=== PATIENT | female | born 1955 | race Caucasian/White ===

== ENCOUNTER 2024-12-17 14:42 | Emergency (ER) | payer MEDICARE, BC, SELFPAY ==
[2024-12-17] VITALS (23 sets, daily range): BP systolic 120–136; BP diastolic 60–76; PULSE 57–80; RESP 11–23; O2SAT 96–98
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
[2024-12-17 15:14] LABS: Abs Immature Grans 0.04 10^3/uL (0.0-0.06); HCT 43.8 % (36.0-46.0); HGB 14.5 g/dL (11.2-15.7); Immature Grans % 0.6 %; MCH 31.4 pg (27.0-33.0); MCHC 33.1 % (32.0-36.0); MCV 95 fL (80-95); MPV 9.2 fL (8.0-11.0); Platelet Count 262 10^3/uL (130-400); RBC 4.62 10^6/uL (3.93-5.22); RDW 11.9 % (11.7-14.6); RDW-SD 41.6 fL; WBC 6.20 10^3/uL (4.4-10.8)
[2024-12-17] MEDS: ACETAMINOPHEN 1,000 MG/100 ML BAG 400 MG IVPB (15:26)
[2024-12-17] MEDS: Diph,Pertuss(Acell),Tet Vac/Pf 0.5 ML SYR IM (15:26)
[2024-12-17 15:34] LABS: INR 1.0 (0.9-1.1); PTT Activated 22.1 sec (20.6-30.2); Prothrombin Time 9.9 sec (9.1-11.1)
[2024-12-17 15:36] LABS: ALT 97 U/L (14-59); AST 120 U/L (15-37); Albumin 4.3 g/dL (3.4-5.0); Alkaline Phosphatase 51 U/L (46-116); Anion Gap 6.1 mmol/L (3-11); BUN 23 mg/dL (7-18); Bilirubin, Total 0.7 mg/dL (0.2-1.0); CO2 31.9 mmol/L (21.0-32.0); Calcium 9.8 mg/dL (8.5-10.1); Chloride 102 mmol/L (98-107); Estimated GFR 69.64 (mL/min/1.73m2); Glucose 137 mg/dL (74-106); Potassium 4.3 mmol/L (3.5-5.1); Sodium 140 mmol/L (136-145); Total Protein 7.7 g/dL (6.4-8.2)
[2024-12-17] MEDS: Normal Saline - Diluent 50 ML VIAL IJ (15:56)
[2024-12-17] MEDS: Omnipaque 350 MG/ML 100 ML BTL IJ (15:56)
--- NOTE | 2024-12-17 16:14 | DI.[facility]_ITS ---
PROCEDURE INFORMATION: Exam: XR Chest Exam date and time: 12/17/2024 3:19 PM Age: 69 years old Clinical indication: Injury or trauma; Fall; Blunt trauma (contusions or hematomas) TECHNIQUE: Imaging protocol: Radiologic exam of the chest. Views: 1 view. COMPARISON: No relevant prior studies available. FINDINGS: Tubes, catheters and devices: EKG wires overlie the chest. Lungs: Unremarkable. No consolidation. Pleural spaces: Unremarkable. No pleural effusion. No pneumothorax. Heart/Mediastinum: Unremarkable. No cardiomegaly. Bones/joints: Degenerative scoliotic changes of the spine. IMPRESSION: No acute cardiopulmonary findings. Dictated and Authenticated by: Tiny Woodall MD. Orderin Luan Hoyos MD
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
== END 2024-12-17 18:03 | disposition home or self-care (01) ==
LOC: ER 17:36
PROVIDERS: Emergency Provider General Practice
DX: S43.402A Unspecified sprain of left shoulder joint, initial encounter (principal); V19.3XXA Pedal cyclist (driver) (passenger) injured in unspecified nontraffic accident, initial encounter; S00.81XA Abrasion of other part of head, initial encounter; S00.83XA Contusion of other part of head, initial encounter
CPT/HCPCS: 36415; 71275; 80053; 86850; 86900; 86901; 90471; 90715; 96365; 99285; 70450; 70486; 71045; 72125; 73030; 74174; 83605; 85025; 85610; 85730; 99284; J0131; J3490